=== PATIENT | male | born 1990 | race Two or more races ===

== ENCOUNTER → 2018-02-01 | Outpatient (CLI) | payer OTHER ==
[~2018-02-01] MED LIST: CYCL10TA29 PO; DICL-195 PO; ESOM20CA31 PO; METH-543 PO
== END ==
LOC: LAB 17:56
PROVIDERS: ATTEND Physician Assistant
DX: E55.9 Vitamin D deficiency, unspecified (principal)
CPT/HCPCS: 36415; 82306